=== PATIENT | female | born 1935 | race Caucasian/White ===

== ENCOUNTER 2020-02-23 20:50 | Observation (INO) | payer MEDICARE, BC ==
--- NOTE | 2020-02-23 21:39 | EDM.PDOC ---
ED HPI GENERAL MEDICAL PROBLEM - General Chief Complaint: Gastrointestinal Problem Stated Complaint: BLOOD IN STOOL Time Seen by Provider: 02/23/20 21:15 Source of Information: Reports: Patient History Limitations: Reports: No Limitations - History of Present Illness INITIAL COMMENTS - FREE TEXT/NARRATIVE: Ms. Sidhu is a very pleasant 84-year-old woman with a past medical history significant for hypertension, dyslipidemia, and GERD, on 2 baby aspirin per day , who now presents to the ED after developing watery diarrhea and gas yesterday , 02/22/2020. She then developed painless bright red blood per rectum with dark clots around 19:30 this evening. No associated lightheadedness, nausea, or vomiting. No prior similar symptoms. The patient denies recent fever, chills, cough, dyspnea, chest pain, palpitations, urinary symptoms, recent weight gain or weight loss, recent joint aches, headaches, or rashes. The patient states that she has not previously undergone an EGD or colonoscopy. Here in the ED, the patient is found to be hemodynamically stable, saturating 95 % on room air. The patient's PCP is Nicole Ferrara NP. She received an influenza vaccine this season. - Related Data Allergies Allergy/AdvReac Type Severity Reaction Status Date / Time No Known Allergies Allergy Verified 02/23/20 21:07 Home Meds: Home Meds Aspirin [Donte Chewable] 162 mg PO DAILY 02/23/20 [History] Levothyroxine 25 mcg PO DAILY 02/23/20 [History] Metoprolol Succinate 100 mg PO DAILY 02/23/20 [History] Pravastatin [Pravachol] 20 mg PO BEDTIME 02/23/20 [History] Verapamil [Calan SR] 1 tab PO BEDTIME 02/23/20 [History] hydroCHLOROthiazide [Hydrochlorothiazide] 12.5 mg PO DAILY 02/23/20 [History] Past Medical History HEENT History: Reports: Impaired Vision Cardiovascular History: Reports: High Cholesterol, Hypertension Gastrointestinal History: Reports: GERD (treats prn) Genitourinary History: Reports: Urinary Incontinence (stress incontinence) Musculoskeletal History: Reports: Back Pain, Chronic (lumbar stenosis), Osteoarthritis Endocrine/Metabolic History: Reports: Hypothyroidism, Obesity/BMI 30+ - Past Surgical History HEENT Surgical History: Reports: Cataract Surgery (bilateral), Oral Surgery ( wisdom teeth extraction), Tonsillectomy GI Surgical History: Reports: Appendectomy Neurological Surgical History: Reports: Lumbar Spine (miscodiscectomy x 3, laminectomy x 1) Musculoskeletal Surgical History: Reports: Knee Replacement (bilateral) Social & Family History - Tobacco Use Smoking Status *Q: Never Smoker - Caffeine Use Caffeine Use: Reports: None - Alcohol Use Alcohol Use History: Yes Alcohol Use Frequency: Rarely - Recreational Drug Use Recreational Drug Use: No - Living Situation & Occupation Living situation: Reports: , Alone Occupation: Retired ED ROS GENERAL - Review of Systems Review Of Systems: Comprehensive ROS is negative, except as noted in HPI. ED EXAM, GI/ABD - Physical Exam Exam: See Below Exam Limited By: No Limitations General Appearance: Alert, WD/WN, No Apparent Distress Eyes: Bilateral: Normal Appearance, EOMI Ears: Normal External Exam, Hearing Grossly Normal Nose: Normal Inspection Throat/Mouth: Normal Inspection, Normal Lips, Normal Voice, No Airway Compromise Head: Atraumatic, Normocephalic Neck: Normal Inspection, Full Range of Motion Respiratory/Chest: No Respiratory Distress, Lungs Clear, Normal Breath Sounds, No Accessory Muscle Use Cardiovascular: Normal Peripheral Pulses, Regular Rate, Rhythm, No Edema, No Gallop, No JVD, No Murmur, No Rub GI/Abdominal Exam: Normal Bowel Sounds, Soft, Non-Tender, No Organomegaly, No Distention, No Abnormal Bruit, No Mass (Female) Exam: Deferred Rectal (Female) Exam: Heme + Stool (maroon clots). No: Hemorrhoids, Tenderness Back Exam: Normal Inspection, Full Range of Motion, NT Extremities: Normal Inspection, Normal Range of Motion, No Pedal Edema, Normal Capillary Refill Neurological: Alert, Oriented, Normal Cognition, No Motor/Sensory Deficits Psychiatric: Normal Affect Skin Exam: Warm, Dry, Intact, Normal Color, No Rash Course - Vital Signs Last Recorded V/S: Last Vital Signs Temp 36.2 C 02/23/20 21:02 Pulse 61 02/23/20 22:53 Resp 16 02/23/20 22:53 BP 166/78 H 02/23/20 22:53 Pulse Ox 98 02/23/20 22:53 Orthostatic Blood Pressure [ 133/87 Standing] Orthostatic Blood Pressure [ 149/95 Sitting] Orthostatic Blood Pressure [ 167/70 Supine] - Orders/Labs/Meds Orders: Active Orders 24 hr Category Date Time Status Orthostatic Vital Signs [RC] STAT Care 02/23/20 21:35 Active Orthostatic Vital Signs [RC] STAT Care 02/23/20 21:52 Active Lactated Ringers @ 150 MLS/HR(1000ml Bag) Med 02/23/20 23:30 Ordered Lactated Ringers [Ringers, Lactated] 1,000 ml IV ASDIRECTED Medication Orders Lactated Ringer's (Ringers, Lactated) 1,000 mls @ 150 mls/hr IV ASDIRECTED WHIT Last Admin: 02/23/20 23:33 Dose: 150 mls/hr Labs: Laboratory Tests 02/23/20 02/23/20 02/23/20 Range/Units 21:01 21:01 21:01 WBC 5.66 (3.98-10.04) K/mm3 RBC 4.12 (3.98-5.22) M/mm3 Hgb 11.5 D (11.2-15.7) gm/dl Hct 36.9 (34.1-44.9) % MCV 89.6 D (79.4-94.8) fl MCH 27.9 (25.6-32.2) pg MCHC 31.2 L (32.2-35.5) g/dl RDW Std Deviation 45.1 (36.4-46.3) fL Plt Count 294 D (182-369) K/mm3 MPV 11.1 (9.4-12.3) fl Neutrophils % (Manual) 47 (40-60) % Band Neutrophils % 0 (0-10) % Lymphocytes % (Manual) 46 H (20-40) % Atypical Lymphs % 0 % Monocytes % (Manual) 6 (2-10) % Eosinophils % (Manual) 1 (0.7-5.8) % Basophils % (Manual) 0 L (0.1-1.2) Platelet Estimate Adequate Poikilocytosis 1+ slight Ovalocytes 1+ slight RBC Morph Comment Not Reportable PT 11.0 (9.7-12.0) SECONDS INR 1.01 APTT 26 (22-31) SECONDS Sodium 139 (136-145) mEq/L Potassium 3.3 L (3.5-5.1) mEq/L Chloride 102 (98-107) mEq/L Carbon Dioxide 26 (21-32) mEq/L Anion Gap 14.3 (5-15) BUN 16 (7-18) mg/dL Creatinine 1.0 (0.55-1.02) mg/dL Est Cr Clr Drug Dosing 43.75 mL/min Estimated GFR (MDRD) 53 (>60) mL/min BUN/Creatinine Ratio 16.0 (14-18) Glucose 129 H (83-115) mg/dL Calcium 9.2 (8.5-10.1) mg/dL Magnesium 1.8 (1.8-2.4) mg/dl Total Bilirubin 0.6 (0.2-1.0) mg/dL AST 25 (15-37) U/L ALT 31 (14-59) U/L Alkaline Phosphatase 104 (46-116) U/L Total Protein 7.5 (6.4-8.2) g/dl Albumin 4.1 (3.4-5.0) g/dl Globulin 3.4 gm/dL Albumin/Globulin Ratio 1.2 (1-2) Blood Type Gel Antibody Screen 02/23/20 Range/Units 21:01 WBC (3.98-10.04) K/mm3 RBC (3.98-5.22) M/mm3 Hgb (11.2-15.7) gm/dl Hct (34.1-44.9) % MCV (79.4-94.8) fl MCH (25.6-32.2) pg MCHC (32.2-35.5) g/dl RDW Std Deviation (36.4-46.3) fL Plt Count (182-369) K/mm3 MPV (9.4-12.3) fl Neutrophils % (Manual) (40-60) % Band Neutrophils % (0-10) % Lymphocytes % (Manual) (20-40) % Atypical Lymphs % % Monocytes % (Manual) (2-10) % Eosinophils % (Manual) (0.7-5.8) % Basophils % (Manual) (0.1-1.2) Platelet Estimate Poikilocytosis Ovalocytes RBC Morph Comment PT (9.7-12.0) SECONDS INR APTT (22-31) SECONDS Sodium (136-145) mEq/L Potassium (3.5-5.1) mEq/L Chloride (98-107) mEq/L Carbon Dioxide (21-32) mEq/L Anion Gap (5-15) BUN (7-18) mg/dL Creatinine (0.55-1.02) mg/dL Est Cr Clr Drug Dosing mL/min Estimated GFR (MDRD) (>60) mL/min BUN/Creatinine Ratio (14-18) Glucose (83-115) mg/dL Calcium (8.5-10.1) mg/dL Magnesium (1.8-2.4) mg/dl Total Bilirubin (0.2-1.0) mg/dL AST (15-37) U/L ALT (14-59) U/L Alkaline Phosphatase (46-116) U/L Total Protein (6.4-8.2) g/dl Albumin (3.4-5.0) g/dl Globulin gm/dL Albumin/Globulin Ratio (1-2) Blood Type B POSITIVE Gel Antibody Screen Negative Meds: Medications Generic Name Dose Route Start Last Admin Trade Name Freq PRN Reason Stop Dose Admin Lactated Ringer's 1,000 mls @ 150 mls/hr 02/23/20 23:30 02/23/20 23:33 Ringers, Lactated IV 150 mls/hr ASDIRECTED WHIT Administration Discontinued Medications Generic Name Dose Route Start Last Admin Trade Name Freq PRN Reason Stop Dose Admin Lactated Ringer's 1,000 mls @ 999 mls/hr 02/23/20 21:51 02/23/20 21:58 Ringers, Lactated IV 02/23/20 22:51 999 mls/hr .BOLUS ONE Administration - Re-Assessments/Exams Free Text/Narrative Re-Assessment/Exam: 02/23/20 21:37 As above, the patient is suffering from a lower GI bleed. At some point, she will need to undergo a colonoscopy to determine the source of the bleed, which will require a GI prep. For tonight's purposes, I have ordered blood work including a type and screen, and orthostatics, to make sure that she does not require blood transfusion. 02/23/20 21:52 The patient is orthostatic. I have ordered 1 L of LR, to be followed by repeat orthostatics. 02/23/20 23:18 Following 1 L of IV fluid, the patient is still orthostatic. I will contact the Surgeon on-call. 02/23/20 23:[address] Ray at 23:20. He recommended that we place the patient into observation. He would like me to order LR at 150 mL/h, and an H/H Q 6 hrs. 02/23/20 23:28 The above plan was discussed with the patient. She is agreeable to being placed into observation. Departure - Departure Time of Disposition: 23:30 Disposition: Refer to Observation Condition: Good Clinical Impression: Lower GI bleed - Discharge Information *PRESCRIPTION DRUG MONITORING PROGRAM REVIEWED*: Not Applicable *COPY OF PRESCRIPTION DRUG MONITORING REPORT IN PATIENT WILLIAM: Not Applicable Referrals: Nicole Ferrara, [facility] [Primary Care Provider] - Forms: ED Department Discharge Sepsis Event Note - Evaluation Sepsis Screening Result: No Definite Risk - Focused Exam Vital Signs: Vital Signs Temp Pulse Resp BP Pulse Ox 02/23/20 22:53 61 16 166/78 H 98 02/23/20 21:02 36.2 C 71 16 113/82 95 Date Exam was Performed: 02/23/20 Time Exam was Performed: 23:41 - My Orders Last 24 Hours: My Active Orders 02/23/20 21:35 Orthostatic Vital Signs [RC] STAT 02/23/20 21:52 Orthostatic Vital Signs [RC] STAT 02/23/20 23:30 Lactated Ringers @ 150 MLS/HR(1000ml Bag) Lactated Ringers [Ringers, Lactated] 1 ,000 ml IV ASDIRECTED - Assessment/Plan Last 24 Hours: My Active Orders 02/23/20 21:35 Orthostatic Vital Signs [RC] STAT 02/23/20 21:52 Orthostatic Vital Signs [RC] STAT 02/23/20 23:30 Lactated Ringers @ 150 MLS/HR(1000ml Bag) Lactated Ringers [Ringers, Lactated] 1 ,000 ml IV ASDIRECTED
[2020-02-23] MEDS ORDERED: Lactated Ringers 1,000 ML IV ONE (21:51)
[2020-02-23] MEDS ORDERED: Lactated Ringers 1,000 ML IV SCH (23:30)
[2020-02-24] MEDS ORDERED: Pantoprazole 40 MG Vial IVPUSH ONE (07:21)
[2020-02-24] MEDS: Pantoprazole 80 MG in Sodium Chloride 0.9% 100 ML IV SCH ×2 (08:25→22:38)
--- NOTE | 2020-02-24 13:20 | PCM.PREANE ---
<Aristeo Spencer - Last Filed: 02/24/20 15:50> Preanesthetic Assessment - Anesthesia/Transfusion/Family Hx Anesthesia History: Prior Anesthesia Reaction Type of Anesthesia Reaction: Excessive Nausea/Vomiting Family History of Anesthesia Reaction: No Transfusion History: Prior Transfusion Without Reaction - Review of Systems General: No Symptoms Pulmonary: No Symptoms Cardiovascular: No Symptoms Gastrointestinal: Diarrhea (reported recent diarrhea / bloody stools) Neurological: No Symptoms Other: Reports: None - Physical Assessment Vital Signs: Last Vital Signs Temp 36.6 C 02/25/20 04:28 Pulse 80 02/25/20 06:58 Resp 20 02/25/20 04:28 BP 172/66 H 02/25/20 06:58 Pulse Ox 94 L 02/25/20 04:28 Orthostatic Blood Pressure [ 133/87 Standing] Orthostatic Blood Pressure [ 149/95 Sitting] Orthostatic Blood Pressure [ 167/70 Supine] Height: 1.73 m Weight: 101.877 kg ASA Class: 2 Mental Status: Alert & Oriented x3 Airway Class: Mallampati = 3 Dentition: Reports: Normal Dentition, [place](s) Thyro-Mental Finger Breadths: 3 Mouth Opening Finger Breadths: 3 ROM/Head Extension: Full Lungs: Clear to Auscultation, Normal Respiratory Effort Cardiovascular: Regular Rate, Regular Rhythm - Lab Values: Laboratory Last Values WBC 5.66 K/mm3 (3.98-10.04) 02/23/20 21:01 RBC 4.12 M/mm3 (3.98-5.22) 02/23/20 21:01 Hgb 9.1 gm/dl (11.2-15.7) L 02/24/20 21:07 Hct 29.7 % (34.1-44.9) L 02/24/20 21:07 MCV 89.6 fl (79.4-94.8) D 02/23/20 21:01 MCH 27.9 pg (25.6-32.2) 02/23/20 21:01 MCHC 31.2 g/dl (32.2-35.5) L 02/23/20 21:01 RDW Std Deviation 45.1 fL (36.4-46.3) 02/23/20 21:01 Plt Count 294 K/mm3 (182-369) D 04/02/20 21:01 MPV 11.1 fl (9.4-12.3) 02/23/20 21:01 Neutrophils % (Manual) 47 % (40-60) 02/23/20 21:01 Band Neutrophils % 0 % (0-10) 02/23/20 21:01 Lymphocytes % (Manual) 46 % (20-40) H 02/23/20 21:01 Atypical Lymphs % 0 % 02/23/20 21:01 Monocytes % (Manual) 6 % (2-10) 02/23/20 21:01 Eosinophils % (Manual) 1 % (0.7-5.8) 02/23/20 21:01 Basophils % (Manual) 0 (0.1-1.2) L 02/23/20 21:01 Platelet Estimate Adequate 02/23/20 21:01 Poikilocytosis 1+ slight 02/23/20 21:01 Ovalocytes 1+ slight 02/23/20 21:01 RBC Morph Comment Not Reportable 02/23/20 21:01 PT 11.0 SECONDS (9.7-12.0) 02/23/20 21:01 INR 1.01 02/23/20 21:01 APTT 26 SECONDS (22-31) 02/23/20 21:01 Sodium 145 mEq/L (136-145) 02/25/20 05:31 Potassium 3.4 mEq/L (3.5-5.1) L 02/25/20 05:31 Chloride 108 mEq/L (98-107) H 02/25/20 05:31 Carbon Dioxide 26 mEq/L (21-32) 02/25/20 05:31 Anion Gap 14.4 (5-15) 02/25/20 05:31 BUN 10 mg/dL (7-18) 02/25/20 05:31 Creatinine 0.8 mg/dL (0.55-1.02) 02/25/20 05:31 Est Cr Clr Drug Dosing 54.69 mL/min 02/25/20 05:31 Estimated GFR (MDRD) > 60 mL/min (>60) 02/25/20 05:31 BUN/Creatinine Ratio 12.5 (14-18) L 02/25/20 05:31 Glucose 81 mg/dL (83-115) L 02/25/20 05:31 Calcium 8.6 mg/dL (8.5-10.1) 02/25/20 05:31 Phosphorus 2.3 mg/dL (2.6-4.7) L 02/25/20 05:31 Magnesium 1.7 mg/dl (1.8-2.4) L 02/25/20 05:31 Total Bilirubin 0.6 mg/dL (0.2-1.0) 02/23/20 21:01 AST 25 U/L (15-37) 02/23/20 21:01 ALT 31 U/L (14-59) 02/23/20 21:01 Alkaline Phosphatase 104 U/L (46-116) 02/23/20 21:01 Total Protein 7.5 g/dl (6.4-8.2) 02/23/20 21:01 Albumin 4.1 g/dl (3.4-5.0) 02/23/20 21:01 Globulin 3.4 gm/dL 02/23/20 21:01 Albumin/Globulin Ratio 1.2 (1-2) 02/23/20 21:01 Blood Type B POSITIVE 02/23/20 21:01 Gel Antibody Screen Negative 02/23/20 21:01 - Allergies Allergies/Adverse Reactions: Allergies Allergy/AdvReac Type Severity Reaction Status Date / Time No Known Allergies Allergy Verified 02/23/20 21:07 - Anesthesia Plan Beta Song: Metoprolol - Acknowledgements Anesthesia Type Planned: MAC Pt an Appropriate Candidate for the Planned Anesthesia: Yes Alternatives and Risks of Anesthesia Discussed w Pt/Guardian: Yes Pt/Guardian Understands and Agrees with Anesthesia Plan: Yes PreAnesthesia Questionnaire HEENT History: Reports: Impaired Vision, Other (See Below) Other HEENT History: Wears glasses Cardiovascular History: Reports: High Cholesterol, Hypertension Respiratory History: Reports: None Gastrointestinal History: Reports: GERD Genitourinary History: Reports: Urinary Incontinence [employer] History: Reports: None, Musculoskeletal History: Reports: Back Pain, Chronic, Osteoarthritis Psychiatric History: Reports: None Endocrine/Metabolic History: Reports: Hypothyroidism, Obesity/BMI 30+ Hematologic History: Reports: Blood Transfusion(s) Immunologic History: Reports: None Oncologic (Cancer) History: Reports: None Dermatologic History: Reports: None - Infectious Disease History Infectious Disease History: Reports: Chicken Pox, Measles, Mumps - Past Surgical History HEENT Surgical History: Reports: Cataract Surgery, Oral Surgery, Tonsillectomy Cardiovascular Surgical History: Reports: None GI Surgical History: Reports: Appendectomy Female Surgical History: Reports: None Endocrine Surgical History: Reports: None Neurological Surgical History: Reports: Lumbar Spine (microdiscectomies x 3, laminectomy x 1), Other (See Below) Other Neurological Surgeries/Procedures: X4 Musculoskeletal Surgical History: Reports: Knee Replacement (bilateral TKR), Other (See Below) Other Musculoskeletal Surgeries/Procedures:: Back surgery X4 - SUBSTANCE USE Smoking Status *Q: Never Smoker Second Hand Smoke Exposure: No Recreational Drug Use History: No - HOME MEDS Home Medications: Home Meds Aspirin [Donte Chewable] 162 mg PO DAILY 02/23/20 [History] Levothyroxine 25 mcg PO DAILY 02/23/20 [History] Metoprolol Succinate 100 mg PO DAILY 02/23/20 [History] Pravastatin [Pravachol] 20 mg PO BEDTIME 02/23/20 [History] Verapamil [Calan SR] 1 tab PO BEDTIME 02/23/20 [History] hydroCHLOROthiazide [Hydrochlorothiazide] 12.5 mg PO DAILY 02/23/20 [History] - CURRENT (IN HOUSE) MEDS Current Meds: Current Medications Pantoprazole Sodium 80 mg/ (Sodium Chloride) 100 mls @ 10 mls/hr IV Q10H [facility] Last Admin: 02/24/20 22:38 Dose: 8 mg/hr, 10 mls/hr Lactated Ringer's (Ringers, Lactated) 1,000 mls @ 100 mls/hr IV ASDIRECTED [facility] Last Admin: 02/25/20 00:35 Dose: 100 mls/hr Levothyroxine Sodium (Levothyroxine) 25 mcg PO ACBREAKFAST [facility] Metoprolol Succinate (Toprol Xl) 100 mg PO DAILY [facility] Last Admin: 02/25/20 06:58 Dose: 100 mg Discontinued Medications Lactated Ringer's (Ringers, Lactated) 1,000 mls @ 999 mls/hr IV .BOLUS ONE Stop: 02/23/20 22:51 Last Admin: 02/23/20 21:58 Dose: 999 mls/hr Lactated Ringer's (Ringers, Lactated) 1,000 mls @ 100 mls/hr IV ASDIRECTED [facility] Last Admin: 02/23/20 23:33 Dose: 150 mls/hr Pantoprazole Sodium (Protonix Iv) 80 mg IVPUSH BOLUS ONE Stop: 02/24/20 07:22 Last Admin: 02/24/20 08:24 Dose: 80 mg Polyethylene Glycol/Electrolytes (Golytely) 4,000 ml PO ONETIME ONE Stop: 02/24/20 18:01 Last Admin: 02/24/20 17:52 Dose: 4,000 ml <Makayla Hogue - Last Filed: 02/25/20 07:26> Preanesthetic Assessment - Physical Assessment NPO Status Date: 02/25/20 NPO Status Time: 06:58 (med with sip H20) - Anesthesia Plan Med Last Dose Date: 02/25/20 Med Last Dose Time: 06:58
[2020-02-24] MEDS: Lactated Ringers 1,000 ML IV SCH (13:29)
[2020-02-24] MEDS: Metoprolol Succinate 50 MG Tab.ER PO SCH (16:52)
[2020-02-24] MEDS ORDERED: Polyethylene Glycol/Electrolytes 4,000 ML Bottle PO ONE (18:00)
[2020-02-25] MEDS: Lactated Ringers 1,000 ML IV SCH (00:35)
[2020-02-25] MEDS: Metoprolol Succinate 50 MG Tab.ER PO SCH ×2 (06:58→10:06)
[2020-02-25] MEDS ORDERED: Lidocaine 1% 6 ML ONE (07:35)
[2020-02-25] MEDS ORDERED: Ondansetron 4 MG/2 ML SDV ONE (07:35)
[2020-02-25] MEDS ORDERED: Propofol 200 MG/20 ML SDV ONE (07:35)
[2020-02-25] MEDS ORDERED: fentaNYL 100 MCG/2 ML SDV ONE (07:35)
[2020-02-25] MEDS ORDERED: Glycopyrrolate 0.2 MG/ML SDV ONE (07:35)
[2020-02-25] MEDS ORDERED: Dexamethasone 4 MG/ML SDV ONE (07:35)
[2020-02-25] MEDS ORDERED: Lactated Ringers 1,000 ML ONE (08:33)
[2020-02-25] MEDS: Levothyroxine 25 MCG Tab PO SCH ×2 (08:57→10:07)
[2020-02-25] MEDS: Pantoprazole 80 MG in Sodium Chloride 0.9% 100 ML IV SCH (08:58)
--- NOTE | 2020-02-25 09:55 | PROC ---
DATE OF OPERATION: 02/25/2020 SURGEON: Eneida Ray MD PREOPERATIVE DIAGNOSIS: Gastrointestinal bleeding. POSTOPERATIVE DIAGNOSIS: Gastrointestinal bleeding. OPERATION PERFORMED: EGD and colonoscopy. FINDINGS: 1. Gastritis with healing linear erosions. 2. Small scattered diverticulosis. 3. Hemorrhoids. ANESTHESIA: Monitored anesthesia care. COMPLICATIONS: None. ESTIMATED BLOOD LOSS: Minimal. INDICATIONS AND CONSENT: Ms. Fry is an 84-year-old female who presented to the emergency department after passing several episodes of gaurav blood through the rectum. The patient had also some orthostasis. Therefore, was admitted for monitoring. Blood levels went from 11.9, down to 8.1, but raised up to 9.1. Blood per rectum stopped after 1 day. Due to her severe bleeding, I offered to do EGD and colonoscopy to find out the cause of the bleeding. I discussed the risks, benefits, and alternatives of this procedure. Informed consent was obtained. DESCRIPTION OF PROCEDURE: The patient was taken to the procedure room and placed in a supine position. Following induction of monitored anesthesia care, position was changed to left lateral decubitus. Time-out was performed and procedure was began by placing the endoscope through the mouth and took all the way down to the second portion of the duodenum. Duodenum was normal. Duodenal bulb was normal. Antrum was normal. Gastric body had several areas of linear erosions that were healing. None had stigmata of acute bleeding such as blood clot or recent irritation. Upon retroflexion, there was a large hiatal hernia containing a portion of the stomach. There were no ulcers or Blair ulcers noted in this side. The entire esophagus appeared to be normal. Air was suctioned out from the stomach and the scope was withdrawn concluding this part of the procedure. We took biopsies of the erosions for histologic examination from the stomach body. These were taken with cold forceps. Next, we went to the colonoscopy. Surgery began with a direct examination. Perianal skin was remarkable for some skin tags. On digital rectal exam, there were no abnormalities. We proceeded with colonoscopy where a colonoscope was inserted and taken all the way to the cecum. The ileocecal valve was intubated. The terminal ileum appeared normal. The appendiceal orifice was photographed. The cecum was normal. Ascending colon was normal. Transverse colon was normal. Descending colon was normal. Sigmoid colon had few small diverticulosis. The rectum appeared normal. On retroflexion, there were clearly hemorrhoids, did not appear to be irritated or bleeding. We suctioned air out from the colon and I removed the scope. From this exam, there was no clear source for her bleeding. We will monitor her in the patel and if she is stable, she may be discharged home. It is possible the bleeding came from diverticulosis or hemorrhoids. If she rebleeds again, my recommendation would be to have capsule endoscopy to look at the small bowel. The patient tolerated the procedure well. At the end of the procedure, the patient was taken to the room for further recovery. MMODAL /[id number] STEPHANY
--- NOTE | 2020-02-25 10:07 | PCM.HP.2 ---
H&P History of Present Illness - General Date of Service: 02/24/20 Admit Problem/Dx: Admission Diagnosis/Problem Admission Diagnosis/Problem GI bleed not requiring more than 4 units of blood in 24 hours, ICU, or surgery Source of Information: Patient History Limitations: Reports: No Limitations - History of Present Illness Initial Comments - Free Text/Narative: The patient had passed several episodes of bright red blood per rectum for several hours prior to presentation. She denies any abdominal pain, nausea or vomiting. When she presented to the ED she was given IV fluids but remained orthostatic and continues to pass bloody stools. I was consulted and recommended admitting the patient for observation and monitoring. Onset of Symptoms: Reports: Sudden Duration of Symptoms: Reports: Day(s): Location: Reports: Abdomen Quality: Reports: Other (bleeding) Improves with: Reports: None Worsens with: Reports: None - Related Data Allergies/Adverse Reactions: Allergies Allergy/AdvReac Type Severity Reaction Status Date / Time No Known Allergies Allergy Verified 02/23/20 21:07 Home Medications: Home Meds Aspirin [Donte Chewable] 162 mg PO DAILY 02/23/20 [History] Levothyroxine 25 mcg PO DAILY 02/23/20 [History] Metoprolol Succinate 100 mg PO DAILY 02/23/20 [History] Pravastatin [Pravachol] 20 mg PO BEDTIME 02/23/20 [History] Verapamil [Calan SR] 1 tab PO BEDTIME 02/23/20 [History] hydroCHLOROthiazide [Hydrochlorothiazide] 12.5 mg PO DAILY 02/23/20 [History] Past Medical History HEENT History: Reports: Impaired Vision, Other (See Below) Other HEENT History: Wears glasses Cardiovascular History: Reports: High Cholesterol, Hypertension Respiratory History: Reports: None Gastrointestinal History: Reports: GERD Genitourinary History: Reports: Urinary Incontinence YARD BRAKEMAN History: Reports: None, Musculoskeletal History: Reports: Back Pain, Chronic, Osteoarthritis Psychiatric History: Reports: None Endocrine/Metabolic History: Reports: Hypothyroidism, Obesity/BMI 30+ Hematologic History: Reports: Blood Transfusion(s) Immunologic History: Reports: None Oncologic (Cancer) History: Reports: None Dermatologic History: Reports: None - Infectious Disease History Infectious Disease History: Reports: Chicken Pox, Measles, Mumps - Past Surgical History HEENT Surgical History: Reports: Cataract Surgery, Oral Surgery, Tonsillectomy Cardiovascular Surgical History: Reports: None GI Surgical History: Reports: Appendectomy Female Surgical History: Reports: None Endocrine Surgical History: Reports: None Neurological Surgical History: Reports: Lumbar Spine (microdiscectomies x 3, laminectomy x 1), Other (See Below) Other Neurological Surgeries/Procedures: X4 Musculoskeletal Surgical History: Reports: Knee Replacement (bilateral TKR), Other (See Below) Other Musculoskeletal Surgeries/Procedures:: Back surgery X4 Social & Family History - Family History Family Medical History: Noncontributory - Tobacco Use Smoking Status *Q: Never Smoker Second Hand Smoke Exposure: No - Caffeine Use Caffeine Use: Reports: None - Recreational Drug Use Recreational Drug Use: No - Living Situation & Occupation Living situation: Reports: , Alone Occupation: Retired H&P Review of Systems - Review of Systems: Review Of Systems: See Below General: Reports: No Symptoms HEENT: Reports: No Symptoms Pulmonary: Reports: No Symptoms Cardiovascular: Reports: No Symptoms Gastrointestinal: Reports: Hematochezia Musculoskeletal: Reports: No Symptoms Skin: Reports: No Symptoms Psychiatric: Reports: No Symptoms Neurological: Reports: No Symptoms Hematologic/Lymphatic: Reports: No Symptoms Immunologic: Reports: No Symptoms Exam - Exam Exam: See Below - Vital Signs Vital Signs: Last Vital Signs Temp 98.1 F 02/25/20 07:42 Pulse 71 02/25/20 07:42 Resp 15 02/25/20 07:42 BP 158/68 H 02/25/20 07:42 Pulse Ox 90 L 02/25/20 07:42 Orthostatic Blood Pressure [ 133/87 Standing] Orthostatic Blood Pressure [ 149/95 Sitting] Orthostatic Blood Pressure [ 167/70 Supine] Weight: 102.92 kg - Exam General: Alert, Oriented, Cooperative HEENT: Conjunctiva Clear Lungs: Clear to Auscultation, Normal Respiratory Effort Cardiovascular: Regular Rate, Regular Rhythm, Normal S1, Normal S2 GI/Abdominal Exam: Soft, Non-Tender, No Organomegaly, No Distention, No Abnormal Bruit, No Mass, Pelvis Stable Extremities: Normal Inspection, Normal Range of Motion - Patient Data Lab Results Last 24 hrs: Laboratory Results - last 24 hr 02/24/20 02/24/20 02/24/20 Range/Units 09:26 15:17 21:07 Hgb 8.1 L 8.4 L 9.1 L (11.2-15.7) gm/dl Hct 26.7 L 27.4 L 29.7 L (34.1-44.9) % Sodium (136-145) mEq/L Potassium (3.5-5.1) mEq/L Chloride (98-107) mEq/L Carbon Dioxide (21-32) mEq/L Anion Gap (5-15) BUN (7-18) mg/dL Creatinine (0.55-1.02) mg/dL Est Cr Clr Drug Dosing mL/min Estimated GFR (MDRD) (>60) mL/min BUN/Creatinine Ratio (14-18) Glucose (83-115) mg/dL Calcium (8.5-10.1) mg/dL Phosphorus (2.6-4.7) mg/dL Magnesium (1.8-2.4) mg/dl 02/25/20 Range/Units 05:31 Hgb (11.2-15.7) gm/dl Hct (34.1-44.9) % Sodium 145 (136-145) mEq/L Potassium 3.4 L (3.5-5.1) mEq/L Chloride 108 H (98-107) mEq/L Carbon Dioxide 26 (21-32) mEq/L Anion Gap 14.4 (5-15) BUN 10 (7-18) mg/dL Creatinine 0.8 (0.55-1.02) mg/dL Est Cr Clr Drug Dosing 54.69 mL/min Estimated GFR (MDRD) > 60 (>60) mL/min BUN/Creatinine Ratio 12.5 L (14-18) Glucose 81 L (83-115) mg/dL Calcium 8.6 (8.5-10.1) mg/dL Phosphorus 2.3 L (2.6-4.7) mg/dL Magnesium 1.7 L (1.8-2.4) mg/dl Result Diagrams: 02/24/20 21:07 02/25/20 05:31 Sepsis Event Note - Evaluation Sepsis Screening Result: No Definite Risk - Focused Exam Vital Signs: Vital Signs Temp Pulse Resp BP Pulse Ox 02/25/20 07:42 98.1 F 71 15 158/68 H 90 L 02/25/20 06:59 78 172/66 H 93 L 02/25/20 06:58 80 172/66 H 02/25/20 04:30 142/83 H 02/25/20 04:28 97.9 F 70 20 94 L 02/25/20 00:43 158/85 H 02/25/20 00:38 97.5 F 70 16 94 L Date Exam was Performed: 02/25/20 Time Exam was Performed: 10:02 Problem List Initiated/Reviewed/Updated: No Orders Last 24hrs: Active Orders 24 hr Category Date Time Status Antiembolic Devices [RC] PER UNIT ROUTINE Care 02/24/20 14:04 Active Communication Order [RC] 0700 Care 02/24/20 15:34 Active Clear Liquid Diet [DIET] Diet 02/25/20 Lunch Active BASIC METABOLIC PANEL,BMP [CHEM] DAILY Lab 02/26/20 05:00 Ordered BASIC METABOLIC PANEL,BMP [CHEM] DAILY Lab 02/27/20 05:00 Ordered BASIC METABOLIC PANEL,BMP [CHEM] DAILY Lab 02/28/20 05:00 Ordered BASIC METABOLIC PANEL,BMP [CHEM] DAILY Lab 02/29/20 05:00 Ordered HEMOGLOBIN/HEMATOCRIT,HH [HEME] Stat Lab 02/25/20 09:55 Received MAGNESIUM [CHEM] DAILY Lab 02/26/20 05:00 Ordered MAGNESIUM [CHEM] DAILY Lab 02/27/20 05:00 Ordered MAGNESIUM [CHEM] DAILY Lab 02/28/20 05:00 Ordered MAGNESIUM [CHEM] DAILY Lab 02/29/20 05:00 Ordered PHOSPHORUS [CHEM] DAILY Lab 02/26/20 05:00 Ordered PHOSPHORUS [CHEM] DAILY Lab 02/27/20 05:00 Ordered PHOSPHORUS [CHEM] DAILY Lab 02/28/20 05:00 Ordered PHOSPHORUS [CHEM] DAILY Lab 02/29/20 05:00 Ordered Levothyroxine Med 02/25/20 06:00 Active 25 mcg PO ACBREAKFAST Metoprolol Succinate [Toprol XL] Med 02/24/20 16:00 Active 100 mg PO DAILY SCD [Sequential Compression Device] [OM.PC] Routine Oth 02/24/20 14:04 Ordered Schedule Procedure [COMM] Routine Oth 02/25/20 08:00 Ordered EKG 12 Lead [EK] Routine Ther 02/24/20 16:15 Ordered Medication Orders Levothyroxine Sodium (Levothyroxine) 25 mcg PO ACBREAKFAST [facility]IT Last Admin: 02/25/20 08:57 Dose: Metoprolol Succinate (Toprol Xl) 100 mg PO DAILY [facility] Last Admin: 02/25/20 06:58 Dose: 100 mg Admin: 02/24/20 16:52 Dose: 100 mg Assessment/Plan Comment:: Patient has GI bleeding. She only takes ASA 162mg daily. - Continue Q6H H/H. Will transfuse if Hgb falls below 7 or patient is symptomatic - NPO with LR at 125cc/hr - Protonix infusion - Prep for colonoscopy tomorrow. - Hold home meds except metoprolol and levothyroxine
--- NOTE | 2020-02-25 10:14 | PCM.SURGPN ---
- General Info Date of Service: 02/25/20 Functional Status: Reports: Pain Controlled - Review of Systems General: Reports: No Symptoms HEENT: Reports: No Symptoms Pulmonary: Reports: No Symptoms Cardiovascular: Reports: No Symptoms Gastrointestinal: Reports: No Symptoms Genitourinary: Reports: No Symptoms Musculoskeletal: Reports: No Symptoms Skin: Reports: No Symptoms Neurological: Reports: No Symptoms Psychiatric: Reports: No Symptoms - Patient Data Vitals - Most Recent: Last Vital Signs Temp 98.1 F 02/25/20 07:42 Pulse 61 02/25/20 10:06 Resp 15 02/25/20 07:42 BP 145/80 H 02/25/20 10:06 Pulse Ox 90 L 02/25/20 07:42 Orthostatic Blood Pressure [ 133/87 Standing] Orthostatic Blood Pressure [ 149/95 Sitting] Orthostatic Blood Pressure [ 167/70 Supine] Weight - Most Recent: 102.92 kg I&O - Last 24 Hours: Intake & Output 02/24/20 02/25/20 02/25/20 22:59 06:59 14:59 Intake Total 1458 5900 Output Total 850 500 Balance 608 5400 Lab Results Last 24 Hrs: Laboratory Results - last 24 hr 02/24/20 02/24/20 02/25/20 Range/Units 15:17 21:07 05:31 Hgb 8.4 L 9.1 L (11.2-15.7) gm/dl Hct 27.4 L 29.7 L (34.1-44.9) % Sodium 145 (136-145) mEq/L Potassium 3.4 L (3.5-5.1) mEq/L Chloride 108 H (98-107) mEq/L Carbon Dioxide 26 (21-32) mEq/L Anion Gap 14.4 (5-15) BUN 10 (7-18) mg/dL Creatinine 0.8 (0.55-1.02) mg/dL Est Cr Clr Drug Dosing 54.69 mL/min Estimated GFR (MDRD) > 60 (>60) mL/min BUN/Creatinine Ratio 12.5 L (14-18) Glucose 81 L (83-115) mg/dL Calcium 8.6 (8.5-10.1) mg/dL Phosphorus 2.3 L (2.6-4.7) mg/dL Magnesium 1.7 L (1.8-2.4) mg/dl 02/25/20 Range/Units 09:55 Hgb 7.7 L (11.2-15.7) gm/dl Hct 25.2 L (34.1-44.9) % Sodium (136-145) mEq/L Potassium (3.5-5.1) mEq/L Chloride (98-107) mEq/L Carbon Dioxide (21-32) mEq/L Anion Gap (5-15) BUN (7-18) mg/dL Creatinine (0.55-1.02) mg/dL Est Cr Clr Drug Dosing mL/min Estimated GFR (MDRD) (>60) mL/min BUN/Creatinine Ratio (14-18) Glucose (83-115) mg/dL Calcium (8.5-10.1) mg/dL Phosphorus (2.6-4.7) mg/dL Magnesium (1.8-2.4) mg/dl Med Orders - Current: Current Medications Levothyroxine Sodium (Levothyroxine) 25 mcg PO ACBREAKFAST [facility] Last Admin: 02/25/20 10:07 Dose: 25 mcg Metoprolol Succinate (Toprol Xl) 100 mg PO DAILY [facility] Last Admin: 02/25/20 10:06 Dose: Not Given Discontinued Medications Dexamethasone (Dexamethasone) Confirm Administered Dose 4 mg .ROUTE .STK-MED ONE Stop: 02/25/20 07:36 Fentanyl (Sublimaze) Confirm Administered Dose 100 mcg .ROUTE .STK-MED ONE Stop: 02/25/20 07:36 Glycopyrrolate (Robinul) Confirm Administered Dose 0.2 mg .ROUTE .STK-MED ONE Stop: 02/25/20 07:36 Lactated Ringer's (Ringers, Lactated) 1,000 mls @ 999 mls/hr IV .BOLUS ONE Stop: 02/23/20 22:51 Last Admin: 02/23/20 21:58 Dose: 999 mls/hr Lactated Ringer's (Ringers, Lactated) 1,000 mls @ 100 mls/hr IV ASDIRECTED [facility] Last Admin: 02/23/20 23:33 Dose: 150 mls/hr Pantoprazole Sodium 80 mg/ (Sodium Chloride) 100 mls @ 10 mls/hr IV Q10H [facility] Last Admin: 02/25/20 08:58 Dose: Not Given Lactated Ringer's (Ringers, Lactated) 1,000 mls @ 100 mls/hr IV ASDIRECTED WHIT Last Admin: 02/25/20 00:35 Dose: 100 mls/hr Lidocaine HCl (Xylocaine-Mpf 1%) Confirm Administered Dose 6 mls @ as directed .ROUTE .STK-MED ONE Stop: 02/25/20 07:36 Lactated Ringer's (Ringers, Lactated) Confirm Administered Dose 1,000 mls @ as directed .ROUTE .STK-MED ONE Stop: 02/25/20 08:34 Ondansetron HCl (Zofran) Confirm Administered Dose 4 mg .ROUTE .STK-MED ONE Stop: 02/25/20 07:36 Pantoprazole Sodium (Protonix Iv) 80 mg IVPUSH BOLUS ONE Stop: 02/24/20 07:22 Last Admin: 02/24/20 08:24 Dose: 80 mg Polyethylene Glycol/Electrolytes (Golytely) 4,000 ml PO ONETIME ONE Stop: 02/24/20 18:01 Last Admin: 02/24/20 17:52 Dose: 4,000 ml Propofol (Diprivan 20 Ml) Confirm Administered Dose 400 mg .ROUTE .STK-MED ONE Stop: 02/25/20 07:36 - Exam General: Alert, Oriented, Cooperative, No Acute Distress HEENT: Pupils Equal Lungs: Clear to Auscultation, Normal Respiratory Effort Cardiovascular: Regular Rate, Regular Rhythm, No Murmurs GI/Abdominal Exam: Normal Bowel Sounds, Soft, Non-Tender, No Organomegaly, No Distention, No Abnormal Bruit, No Mass Sepsis Event Note - Evaluation Sepsis Screening Result: No Definite Risk - Focused Exam Vital Signs: Vital Signs Temp Pulse Resp BP Pulse Ox 02/25/20 10:06 61 145/80 H 02/25/20 07:42 98.1 F 71 15 158/68 H 90 L 02/25/20 06:59 78 172/66 H 93 L 02/25/20 06:58 80 172/66 H 02/25/20 04:30 142/83 H 02/25/20 04:28 97.9 F 70 20 94 L 02/25/20 00:43 158/85 H 02/25/20 00:38 97.5 F 70 16 94 L Date Exam was Performed: 02/25/20 Time Exam was Performed: 10:11 - Problem List Review Problem List Initiated/Reviewed/Updated: No - My Orders Last 24 Hours: Active Orders 24 hr Category Date Time Status Antiembolic Devices [RC] PER UNIT ROUTINE Care 02/24/20 14:04 Active Communication Order [RC] 0700 Care 02/24/20 15:34 Active Clear Liquid Diet [DIET] Diet 02/25/20 Lunch Active BASIC METABOLIC PANEL,BMP [CHEM] DAILY Lab 02/26/20 05:00 Ordered BASIC METABOLIC PANEL,BMP [CHEM] DAILY Lab 02/27/20 05:00 Ordered BASIC METABOLIC PANEL,BMP [CHEM] DAILY Lab 02/28/20 05:00 Ordered BASIC METABOLIC PANEL,BMP [CHEM] DAILY Lab 02/29/20 05:00 Ordered MAGNESIUM [CHEM] DAILY Lab 02/26/20 05:00 Ordered MAGNESIUM [CHEM] DAILY Lab 02/27/20 05:00 Ordered MAGNESIUM [CHEM] DAILY Lab 02/28/20 05:00 Ordered MAGNESIUM [CHEM] DAILY Lab 02/29/20 05:00 Ordered PHOSPHORUS [CHEM] DAILY Lab 02/26/20 05:00 Ordered PHOSPHORUS [CHEM] DAILY Lab 02/27/20 05:00 Ordered PHOSPHORUS [CHEM] DAILY Lab 02/28/20 05:00 Ordered PHOSPHORUS [CHEM] DAILY Lab 02/29/20 05:00 Ordered Levothyroxine Med 02/25/20 06:00 Active 25 mcg PO ACBREAKFAST Metoprolol Succinate [Toprol XL] Med 02/24/20 16:00 Active 100 mg PO DAILY SCD [Sequential Compression Device] [OM.PC] Routine Oth 02/24/20 14:04 Ordered Schedule Procedure [COMM] Routine Oth 02/25/20 08:00 Ordered EKG 12 Lead [EK] Routine Ther 02/24/20 16:15 Ordered Medication Orders Levothyroxine Sodium (Levothyroxine) 25 mcg PO ACBREAKFAST [facility] Last Admin: 02/25/20 08:57 Dose: Metoprolol Succinate (Toprol Xl) 100 mg PO DAILY WHIT Last Admin: 02/25/20 06:58 Dose: 100 mg Admin: 02/24/20 16:52 Dose: 100 mg - Assessment Assessment (Free Text/Narrative):: EGD and colonoscopy done today EGD - a few linear erosions in the body of the stomach without stigmata of recent bleeding. biopsied. Large hiatal hernia. Colonoscopy - a few small diverticulosis, hemorrhoids. otherwise normal study. Normal terminal ileum. A/P No clear source of bleeding based on this exam. No blood in the colon/stomach so the patient has likely stopped bleeding. - Check H/H today, if stable and patient asymptomatic, we will feed the patient and allow her to go home. Hold ASA for 10 days, start Omeprazole daily x 3 months for stomach erosions. - Dc IVF - start CLD now - Ok to ambulate
--- NOTE | 2020-02-25 12:29 | PCM48HPAN ---
Post Anesthesia Note - EVALUATION WITHIN 48HRS OF ANESTHETIC Vital Signs in Normal Range: Yes Patient Participated in Evaluation: Yes Respiratory Function Stable: Yes Airway Patent: Yes Cardiovascular Function Stable: Yes Hydration Status Stable: Yes Pain Control Satisfactory: Yes Nausea and Vomiting Control Satisfactory: Yes Mental Status Recovered: Yes Vital Signs: Last Vital Signs Temp 36.5 C 02/25/20 11:56 Pulse 60 02/25/20 11:56 Resp 17 02/25/20 11:56 BP 133/62 02/25/20 11:56 Pulse Ox 91 L 02/25/20 11:56 Orthostatic Blood Pressure [ 133/87 Standing] Orthostatic Blood Pressure [ 149/95 Sitting] Orthostatic Blood Pressure [ 167/70 Supine]
[2020-02-25] MEDS ORDERED: Pantoprazole 40 MG Tab.CR PO SCH (16:00)
--- NOTE | 2020-02-25 17:59 | PCM.SN ---
- Free Text/Narrative Note: Patient had regular diet today and ambulated. Per RN, the patient did not complain of any dizziness or lightheadedness. Vital signs remain stable and no BM since the procedure which did not reveal any blood or clear source of bleeding. Post procedure Hgb was 7.7 and 7.5. This is down from yesterday but likely due to hemodilution and not persistent bleeding. The patient is asymptomatic at this time and I believe it is safe for her to return home with precaution to come to the ED immediately if she notices any hematochezia. We will discharge with Iron supplements, Omeprazole and instructions to hold ASA for now. She is to follow up with me in 1 week with CBC.
--- NOTE | 2020-02-25 18:05 | PCM.DCSUM1 ---
Discharge Summary - Hospital Course Free Text/Narrative:: The patient presented for GI bleeding. Hgb dropped from 11.9 to 7.5. Bleeding stopped. Patient remained stable. EGD/Colonoscopy were performed without any clear etiology of the bleeding. Patient will be discharged to home with Iron supplements, Omeprazole and is instructed to hold ASA at this time. Patient instructed to return to the ED immediately if she experiences recurrent bleeding. Diagnosis: Stroke: No - Discharge Data Discharge Date: 02/25/20 Discharge Disposition: Home, Self-Care 01 Condition: Good - Referral to Home Health Primary Care Physician: Nicole Ferrara NP - Patient Instructions Diet: Regular Diet as Tolerated Activity: As Tolerated Driving: May Drive Today Showering/Bathing: May Shower Notify Provider of: Fever, Nausea and/or Vomiting Other/Special Instructions: Please do not take Aspirin until follow up with your primary care provider. - Discharge Plan *PRESCRIPTION DRUG MONITORING PROGRAM REVIEWED*: Not Applicable *COPY OF PRESCRIPTION DRUG MONITORING REPORT IN PATIENT WILLIAM: Not Applicable Prescriptions/Med Rec: Ferrous Sulfate 325 mg PO DAILY 30 Days #30 tablet Omeprazole 40 mg PO DAILY 90 Days #90 capsule. [place] Medications: Home Meds Levothyroxine 25 mcg PO DAILY 02/23/20 [History] Metoprolol Succinate 100 mg PO DAILY 02/23/20 [History] Pravastatin [Pravachol] 20 mg PO BEDTIME 02/23/20 [History] Verapamil [Calan SR] 1 tab PO BEDTIME 02/23/20 [History] hydroCHLOROthiazide [Hydrochlorothiazide] 12.5 mg PO DAILY 02/23/20 [History] Ferrous Sulfate 325 mg PO DAILY 30 Days #30 tablet 02/25/20 [Rx] Omeprazole 40 mg PO DAILY 90 Days #90 capsule. 02/25/20 [Rx] Oxygen Therapy Mode: Room Air Forms: ED Department Discharge Referrals: Nicole Ferrara NP [Primary Care Provider] - (Follow up with Dr. Ray in 1 week.) - Discharge Summary/Plan Comment DC Time >30 min.: Yes - Patient Data Vitals - Most Recent: Last Vital Signs Temp 98.1 F 02/25/20 16:39 Pulse 59 L 02/25/20 16:39 Resp 14 02/25/20 16:39 BP 153/98 H 02/25/20 16:39 Pulse Ox 98 02/25/20 16:39 Orthostatic Blood Pressure [ 133/87 Standing] Orthostatic Blood Pressure [ 149/95 Sitting] Orthostatic Blood Pressure [ 167/70 Supine] Weight - Most Recent: 102.92 kg I&O - Last 24 hours: Intake & Output 02/25/20 02/25/20 02/25/20 06:59 14:59 22:59 Intake Total 5900 1060 Output Total 500 Balance 5400 1060 Lab Results - Last 24 hrs: Laboratory Results - last 24 hr 02/24/20 02/25/20 02/25/20 Range/Units 21:07 05:31 09:55 Hgb 9.1 L 7.7 L (11.2-15.7) gm/dl Hct 29.7 L 25.2 L (34.1-44.9) % Sodium 145 (136-145) mEq/L Potassium 3.4 L (3.5-5.1) mEq/L Chloride 108 H (98-107) mEq/L Carbon Dioxide 26 (21-32) mEq/L Anion Gap 14.4 (5-15) BUN 10 (7-18) mg/dL Creatinine 0.8 (0.55-1.02) mg/dL Est Cr Clr Drug Dosing 54.69 mL/min Estimated GFR (MDRD) > 60 (>60) mL/min BUN/Creatinine Ratio 12.5 L (14-18) Glucose 81 L (83-115) mg/dL Calcium 8.6 (8.5-10.1) mg/dL Phosphorus 2.3 L (2.6-4.7) mg/dL Magnesium 1.7 L (1.8-2.4) mg/dl 02/25/20 Range/Units 14:55 Hgb 7.5 L (11.2-15.7) gm/dl Hct 25.2 L (34.1-44.9) % Sodium (136-145) mEq/L Potassium (3.5-5.1) mEq/L Chloride (98-107) mEq/L Carbon Dioxide (21-32) mEq/L Anion Gap (5-15) BUN (7-18) mg/dL Creatinine (0.55-1.02) mg/dL Est Cr Clr Drug Dosing mL/min Estimated GFR (MDRD) (>60) mL/min BUN/Creatinine Ratio (14-18) Glucose (83-115) mg/dL Calcium (8.5-10.1) mg/dL Phosphorus (2.6-4.7) mg/dL Magnesium (1.8-2.4) mg/dl Med Orders - Current: Current Medications Levothyroxine Sodium (Levothyroxine) 25 mcg PO ACBREAKFAST [facility] Last Admin: 02/25/20 10:07 Dose: 25 mcg Metoprolol Succinate (Toprol Xl) 100 mg PO DAILY [facility] Last Admin: 02/25/20 10:06 Dose: Not Given Pantoprazole Sodium (Protonix) 40 mg PO BIDAC [facility] Last Admin: 02/25/20 16:34 Dose: 40 mg Discontinued Medications Dexamethasone (Dexamethasone) Confirm Administered Dose 4 mg .ROUTE .STK-MED ONE Stop: 02/25/20 07:36 Fentanyl (Sublimaze) Confirm Administered Dose 100 mcg .ROUTE .STK-MED ONE Stop: 02/25/20 07:36 Glycopyrrolate (Robinul) Confirm Administered Dose 0.2 mg .ROUTE .STK-MED ONE Stop: 02/25/20 07:36 Lactated Ringer's (Ringers, Lactated) 1,000 mls @ 999 mls/hr IV .BOLUS ONE Stop: 02/23/20 22:51 Last Admin: 02/23/20 21:58 Dose: 999 mls/hr Lactated Ringer's (Ringers, Lactated) 1,000 mls @ 100 mls/hr IV ASDIRECTED [facility] Last Admin: 02/23/20 23:33 Dose: 150 mls/hr Pantoprazole Sodium 80 mg/ (Sodium Chloride) 100 mls @ 10 mls/hr IV Q10H [facility] Last Admin: 02/25/20 08:58 Dose: Not Given Lactated Ringer's (Ringers, Lactated) 1,000 mls @ 100 mls/hr IV ASDIRECTED [facility] Last Admin: 02/25/20 00:35 Dose: 100 mls/hr Lidocaine HCl (Xylocaine-Mpf 1%) Confirm Administered Dose 6 mls @ as directed .ROUTE .STK-MED ONE Stop: 02/25/20 07:36 Lactated Ringer's (Ringers, Lactated) Confirm Administered Dose 1,000 mls @ as directed .ROUTE .STK-MED ONE Stop: 02/25/20 08:34 Ondansetron HCl (Zofran) Confirm Administered Dose 4 mg .ROUTE .STK-MED ONE Stop: 02/25/20 07:36 Pantoprazole Sodium (Protonix Iv) 80 mg IVPUSH BOLUS ONE Stop: 02/24/20 07:22 Last Admin: 02/24/20 08:24 Dose: 80 mg Polyethylene Glycol/Electrolytes (Golytely) 4,000 ml PO ONETIME ONE Stop: 02/24/20 18:01 Last Admin: 02/24/20 17:52 Dose: 4,000 ml Propofol (Diprivan 20 Ml) Confirm Administered Dose 400 mg .ROUTE .STK-MED ONE Stop: 02/25/20 07:36
== END 2020-02-25 19:00 | disposition home or self-care (01) ==
LOC: JD.ED 20:50 → JD.MS 02-24 00:42 → INTOOBSV 02-24 08:19 → OBSVTOIN 02-24 08:19 → UNDODISIN 02-25 19:00 → UNDODISOB 04-26 19:00
PROVIDERS: ADMIT Surgery; ATTEND Surgery
DX: K92.2 Gastrointestinal hemorrhage, unspecified (principal); K64.9 Unspecified hemorrhoids; H54.7 Unspecified visual loss; E78.00 Pure hypercholesterolemia, unspecified; K21.9 Gastro-esophageal reflux disease without esophagitis; I10 Essential (primary) hypertension; N39.3 Stress incontinence (female) (male); G89.29 Other chronic pain; M48.061 Spinal stenosis, lumbar region without neurogenic claudication; M19.90 Unspecified osteoarthritis, unspecified site; E03.9 Hypothyroidism, unspecified; K44.9 Diaphragmatic hernia without obstruction or gangrene; E66.9 Obesity, unspecified; Z96.653 Presence of artificial knee joint, bilateral; Z79.82 Long term (current) use of aspirin; Z79.890 Hormone replacement therapy; Z98.42 Cataract extraction status, left eye; Z98.41 Cataract extraction status, right eye; Z98.49 Cataract extraction status, unspecified eye; Z90.49 Acquired absence of other specified parts of digestive tract; Z68.34 Body mass index [BMI] 34.0-34.9, adult; Z79.899 Other long term (current) drug therapy
CPT/HCPCS: 36415; 43239; 45378; 80048; 80053; 83735; 84100; 85007; 85014; 85018; 85027; 85610; 85730; 86850; 86900; 86901; 88305; 88342; 93005; 96361; 96374; 96376; 99285; A9270; C9113; G0378; J1100; J2001; J2405; J2704; J3010; J3490; J7050; J7120; 00813; 96360

== ENCOUNTER 2022-10-09 15:24 | Emergency (ER) | payer MEDICARE, OTHER | END 2022-10-09 17:50 | disposition home or self-care (01) | LOC: JD.ED 15:24 | DX: S52.572A Other intraarticular fracture of lower end of left radius, initial encounter for closed fracture (principal); S52.612A Displaced fracture of left ulna styloid process, initial encounter for closed fracture; E78.00 Pure hypercholesterolemia, unspecified; I10 Essential (primary) hypertension; E66.9 Obesity, unspecified; Z68.34 Body mass index [BMI] 34.0-34.9, adult; Z79.899 Other long term (current) drug therapy; Z90.49 Acquired absence of other specified parts of digestive tract; W23.1XXA Caught, crushed, jammed, or pinched between stationary objects, initial encounter | CPT/HCPCS: 29125; 73110-26-LT; 73110-LT; 99283 ==

== ENCOUNTER 2023-10-26 06:37 | Day surgery (SDC) | payer MEDICARE, BC ==
[~2023-10-26 06:37] MED LIST: Lactated Ringers 1,000 ML IV SCH; Sodium Chloride 0.9% 10 ML Syringe FLUSH PRN; Sodium Chloride 0.9% 10 ML Syringe FLUSH SCH
[2023-10-26 07:19] LABS: INR 0.98; PROTHROMBIN TIME 10.5 SECONDS (9.7-12.0)
[2023-10-26 07:20] LABS: PTT,PARTIAL THROMBOPLSTIN TIME 23.8 SECONDS (21.7-31.4)
[2023-10-26] MEDS ORDERED: dexmedeTOMIDine HCl 200 MCG/2 ML SDV ONE ×2 (07:44→10:45)
[2023-10-26] MEDS ORDERED: Ropivacaine 0.5% 5 MG/ML 30 ML SDV ONE (07:44)
[2023-10-26] MEDS ORDERED: Scopalamine 1mg/3day Transdermal Patch TRDERM PRN (07:45)
[2023-10-26] MEDS ORDERED: Propofol 200 MG/20 ML SDV ONE ×3 (07:47→09:43)
[2023-10-26] MEDS ORDERED: EPINEPHrine 1 MG/ML SDV ONE (07:50)
[2023-10-26] MEDS ORDERED: Lidocaine 1% 5 ML VIAL ONE (07:52)
[2023-10-26] MEDS ORDERED: ceFAZolin 2 GM Vial ONE (08:40)
[2023-10-26] MEDS ORDERED: Dexamethasone 4 MG/ML 5 ML MDV ONE (09:04)
[2023-10-26] MEDS ORDERED: Ondansetron 4 MG/2 ML SDV ONE ×2 (09:04→09:45)
[2023-10-26] MEDS ORDERED: fentaNYL 100 MCG/2 ML SDV ONE ×2 (09:29→10:16)
[2023-10-26] MEDS: Vancomycin 1 GM SDV ONE ×2 (09:30→10:55)
[2023-10-26] MEDS ORDERED: Lactated Ringers 1,000 ML IV ONE (09:30)
[2023-10-26] MEDS: Morphine 8 MG, EPINEPHrine 0.3 MG, Cefuroxime 750 MG, Ketorolac 30 MG, Sodium Chloride ... PRN ×10 (09:30→10:47)
[2023-10-26] MEDS: Tranexamic Acid 1,000 MG/10 ML Vial ONE ×2 (09:30→10:55)
[2023-10-26] MEDS ORDERED: Rocuronium 50 MG/5 ML Vial ONE (09:34)
[2023-10-26] MEDS ORDERED: Lidocaine 1% 2 ML ONE (09:34)
[2023-10-26] MEDS ORDERED: Succinylcholine 200 MG/10 ML MDV ONE (09:34)
[2023-10-26] MEDS ORDERED: Neostigmine Methylsulfate 10 MG/10 ML MDV ONE (09:35)
[2023-10-26] MEDS ORDERED: Labetalol 100 MG/20 ML MDV ONE (10:56)
[2023-10-26] MEDS ORDERED: HYDROmorphone 0.5 MG/0.5 ML Syringe IVPUSH PRN (11:33)
[2023-10-26] MEDS ORDERED: fentaNYL 100 MCG/2 ML SDV IVPUSH PRN (11:33)
[2023-10-26] MEDS ORDERED: Acetaminophen/HYDROcodone 325-5 MG Tab PO PRN (11:59)
[2023-10-26] MEDS ORDERED: Acetaminophen/HYDROcodone 325-5 MG Tab PO SCH (12:24)
== END 2023-10-26 16:03 | disposition home or self-care (01) ==
LOC: JD.SDS 06:37
PROVIDERS: ATTEND Orthopaedic Surgery
DX: M17.12 Unilateral primary osteoarthritis, left knee (principal); I10 Essential (primary) hypertension; E11.9 Type 2 diabetes mellitus without complications; F41.9 Anxiety disorder, unspecified; E03.9 Hypothyroidism, unspecified; K21.9 Gastro-esophageal reflux disease without esophagitis; E78.2 Mixed hyperlipidemia; Z79.82 Long term (current) use of aspirin; Z79.890 Hormone replacement therapy; Z79.899 Other long term (current) drug therapy; Z88.8 Allergy status to other drugs, medicaments and biological substances
CPT/HCPCS: 01402; 36415; 64447; 73560-26-LT; 73560-LT; 85610; 85730; 97116-GP; 97161-GP; 99100; A9270-GY; C1713; C1776; J0171; J0330; J0690; J0697; J1100; J1170; J1885; J2270; J2405; J2704; J2710; J2795; J3010; J3370; J3490; J7030; J7120

== ENCOUNTER 2024-02-08 06:00 | Day surgery (SDC) | payer MEDICARE, BC ==
[~2024-02-08 06:00] MED LIST changes: -Lactated Ringers 1,000 ML IV SCH
[2024-02-08] MEDS ORDERED: Ondansetron 4 MG/2 ML SDV ONE (06:13)
[2024-02-08] MEDS ORDERED: Propofol 200 MG/20 ML SDV ONE (06:14)
[2024-02-08] MEDS ORDERED: fentaNYL 100 MCG/2 ML SDV ONE (06:14)
[2024-02-08] MEDS ORDERED: ceFAZolin 2 GM Vial ONE (06:16)
[2024-02-08] MEDS: Lactated Ringers 1,000 ML IV SCH (06:30)
[2024-02-08] MEDS ORDERED: Scopalamine 1mg/3day Transdermal Patch TRDERM ONE (06:41)
[2024-02-08] MEDS ORDERED: Lidocaine 1% 2 ML ONE (07:05)
[2024-02-08] MEDS ORDERED: ePHEDrine 50 MG/ML SDV ONE (08:00)
[2024-02-08] MEDS: Morphine 8 MG, EPINEPHrine 0.3 MG, Cefuroxime 750 MG, Ketorolac 30 MG, Sodium Chloride ... PRN (08:09)
[2024-02-08] MEDS: Tranexamic Acid 1,000 MG/10 ML Vial ONE (08:10)
[2024-02-08] MEDS: Vancomycin 1 GM SDV ONE (08:10)
[2024-02-08] MEDS ORDERED: fentaNYL 100 MCG/2 ML SDV IVPUSH PRN (08:45)
[2024-02-08] MEDS ORDERED: Ondansetron 4 MG/2 ML SDV IVPUSH PRN (08:45)
[2024-02-08] MEDS ORDERED: HYDROmorphone 0.5 MG/0.5 ML Syringe IVPUSH PRN (08:45)
[2024-02-08] MEDS: Scopalamine 1mg/3day Transdermal Patch TRDERM ONE (09:10)
[2024-02-08] MEDS: traMADol 50 MG Tab PO PRN (12:11)
[2024-02-11] MEDS ORDERED: [UNRECOGNIZED DRUG - REMARK] TRDERM SCH (07:00)
== END 2024-02-08 13:30 | disposition home or self-care (01) ==
LOC: JD.SDS 06:00
PROVIDERS: ATTEND Orthopaedic Surgery
DX: M16.11 Unilateral primary osteoarthritis, right hip (principal); I10 Essential (primary) hypertension; E11.9 Type 2 diabetes mellitus without complications; F41.9 Anxiety disorder, unspecified; K21.9 Gastro-esophageal reflux disease without esophagitis; E78.2 Mixed hyperlipidemia; E03.9 Hypothyroidism, unspecified; Z79.890 Hormone replacement therapy; Z79.899 Other long term (current) drug therapy
CPT/HCPCS: 0055T; 27130; 36415; 73501; 86850; 86900; 86901; 97116; 97161; A9270; C1713; C1776; J0171; J0690; J0697; J1596; J1885; J2270; J2405; J2704; J3010; J3370; J7030; J7120; 01214; 99100; J3490

== ENCOUNTER 2024-02-09 18:24 | Emergency (ER) | payer MEDICARE, BC ==
[2024-02-09 19:10] LABS: BASOPHILS PERCENT AUTO 0.1 % (0.0-1.0); EOSINOPHILS ABSOLUTE AUTO 0.1 K/mm3 (0.0-0.4); EOSINOPHILS PERCENT AUTO 0.7 % (0.0-6.0); HEMATOCRIT 32.3 % (37.0-47.0); HEMOGLOBIN 10.8 gm/dl (12.0-16.0); IMMATURE GRAN ABSOLUTE AUTO 0.02 K/mm3 (0.00-0.05); IMMATURE GRAN PERCENT AUTO 0.3 % (0.0-0.4); LYMPHOCYTES ABSOLUTE AUTO 0.8 K/mm3 (1.0-4.8); LYMPHOCYTES PERCENT AUTO 11.4 % (24.0-44.0); MEAN CORPUSCULAR HEMOGLOBIN 31.6 pg (28.0-32.0); MEAN CORPUSCULAR HGB CONC 33.4 g/dl (32.0-36.0); MEAN CORPUSCULAR VOLUME 94.4 fl (83.0-99.0); MEAN PLATELET VOLUME 10.6 fl (9.4-12.3); MONOCYTES ABSOLUTE AUTO 0.7 K/mm3 (0.0-0.8); MONOCYTES PERCENT AUTO 10.5 % (0.0-8.0); NEUTROPHILS ABSOLUTE AUTO 5.3 K/mm3 (1.8-7.7); PLATELET COUNT,PLT 146 K/mm3 (150-400); RED BLOOD CELL COUNT 3.42 M/mm3 (4.10-5.30); WHITE BLOOD CELL COUNT,WBC 6.94 K/mm3 (3.9-11.3)
[2024-02-09] MEDS: Dextrose 5%-Lactated Ringers 1,000 ML IV SCH (19:18)
[2024-02-09 19:40] LABS: A/G RATIO 1.1 (1-2); ALBUMIN 3.5 g/dl (3.4-5.0); ANION GAP 14.7 (5-15); BILIRUBIN TOTAL 1.2 mg/dL (0.2-1.0); BUN/CREATININE RATIO 20.8 (14-18); C-REACTIVE PROTEIN 8.79 mg/dL (<0.30); CALCIUM 8.8 mg/dL (8.5-10.1); CREATININE 1.3 mg/dL (0.55-1.02); EST CRCL DRUG DOSING (CG) 31.34 mL/min; MAGNESIUM 1.4 mg/dL (1.8-2.4); POTASSIUM,K 3.7 mEq/L (3.5-5.1); PROTEIN TOTAL,TP 6.6 g/dl (6.4-8.2)
[2024-02-09 21:06] LABS: APPEARANCE,URINE CLEAR (Clear); BILIRUBIN,URINE NEGATIVE (Negative); COLOR,URINE YELLOW (Yellow); GLUCOSE,URINE NEGATIVE (Negative); KETONES,URINE NEGATIVE (Negative); LEUKOCYTE ESTERASE,URINE NEGATIVE (Negative); NITRITE,URINE NEGATIVE (Negative); OCCULT BLOOD,URINE NEGATIVE (Negative); PROTEIN,URINE NEGATIVE (Negative); UROBILINOGEN,URINE 0.2 (0.2-1.0)
[2024-02-09 21:25] LABS: BACTERIA,URINE FEW /hpf (FEW); HYALINE CASTS,URINE 0-5 /lpf (0-5); MUCUS,URINE FEW /hpf (FEW); RBC,URINE 0-5 /hpf (0-5); SQUAMOUS EPITHELIAL CELLS,UR 0-5 /hpf (0-5); WBC,URINE 0-5 /hpf (0-5)
== END 2024-02-09 21:55 | disposition home or self-care (01) ==
LOC: JD.ED 18:24
DX: M25.551 Pain in right hip (principal); R10.30 Lower abdominal pain, unspecified; T50.905A Adverse effect of unspecified drugs, medicaments and biological substances, initial encounter; I10 Essential (primary) hypertension; K21.9 Gastro-esophageal reflux disease without esophagitis; M19.90 Unspecified osteoarthritis, unspecified site; E78.00 Pure hypercholesterolemia, unspecified; E66.9 Obesity, unspecified; E03.9 Hypothyroidism, unspecified; Z79.82 Long term (current) use of aspirin; Z79.899 Other long term (current) drug therapy; Z90.49 Acquired absence of other specified parts of digestive tract; Z68.29 Body mass index [BMI] 29.0-29.9, adult; W19.XXXA Unspecified fall, initial encounter; Y92.009 Unspecified place in unspecified non-institutional (private) residence as the place of occurrence of the external cause
CPT/HCPCS: 36415; 72170; 80053; 81001; 83735; 83880; 85025; 86140; 96360; 96361; 99284; J7121; 99283